=== PATIENT | female | born 1945 | race Caucasian/White ===

== ENCOUNTER 2020-04-29 13:12 | Observation (INO) | payer MEDICARE ==
[~2020-04-29] VITALS: Ht 160 cm; Wt 83.5 kg
--- NOTE | 2020-04-29 13:24 | NUR ---
PATIENT TO ROOM VIA WHEELCHAIR AND PHYSICIAN AT BEDSIDE FOR EVAL
[2020-04-29 13:45] LABS: IMMATURE GRANULOCYTES 1.1 % (0.0-5.0); MEAN CORPUSCULAR HGB 26.6 pG CALC (26.0-32.0); MEAN CORPUSCULAR HGB CONC 31.7 g/dL CAL (32.0-36.0); NEUT# 4.74 thou/uL (1.82-7.42); RED BLOOD COUNT 4.88 mill/uL (4.70-6.10); RED CELL DISTRI WIDTH 14.3 % (11.5-15.5)
[2020-04-29 13:56] LABS: ALBUMIN 4.3 g/dL (3.2-5.0); ALKALINE PHOSPHATASE 105 u/l (38-126); ANION GAP 11 (6-22 (CALC)); BILIRUBIN, TOTAL 0.4 mg/dL (0.0-1.4); BUN 16 mg/dL (8-23); BUN/CREATININE RATIO 25 (12-20 (CALC)); CARBON DIOXIDE 26 mmol/l (22-30); CHLORIDE 103 mmol/l (95-108); CREATININE 0.6 mg/dL (0.7-1.3); GFR > 60 ML/MIN (>=60 (CALC)); GFR FOR AFR.AMER. > 60 ML/MIN (>=60 (CALC)); POTASSIUM 4.2 mmol/l (3.5-5.1); SGOT/AST 20 u/l (19-48); SODIUM 135 mmol/l (137-146); TOTAL PROTEIN 7.3 g/dL (6.3-8.2)
[2020-04-29 13:57] LABS: ACT PARTIAL THROMBO TIME 25.9 SECONDS (20.0-32.5); PROTHROMBIN TIME 10.1 SECONDS (9.0-12.5)
--- NOTE | 2020-04-29 13:58 | NUR ---
MEDICATDE ORDERED, DURGA AT BEDSIDE FOR IV ACCESS
--- NOTE | 2020-04-29 14:41 | NUR ---
BP IMPROVED SINCE MEDICATED WITH NITRO
--- NOTE | 2020-04-29 15:30 | NUR ---
PT RESTING COMPLAINS OF HEADACHE, MD AWARE
[2020-04-29] MEDS ORDERED: ULTRAM50 M1 PO (15:52)
--- NOTE | 2020-04-29 16:35 | NUR ---
PT RESTING MEDICATED EARLIER FOR HEADACHE WITH MILD RELIEF, SPOUSE REMAINS AT BEDSIDE
--- NOTE | 2020-04-29 17:13 | NUR ---
PT AWARE OF DELAYED ADMISSION AND BUSY ER, OFFERS NO NEW COMPLAINTS SPOUSE REMAINS AT BEDSIDE
--- NOTE | 2020-04-29 19:41 | NUR ---
HAND OFF REPORT RECEIVED FROM RAY
--- NOTE | 2020-04-29 20:30 | NUR ---
PATIENT TRANSFERED TO INPATIENT TREATMENT ROOM
--- NOTE | 2020-04-29 20:34 | NUR ---
REPORT CALLED TO ABY ON MED SURG
[2020-04-29 20:35] VITALS: BP 175/87
--- NOTE | 2020-04-29 20:35 | NUR ---
PT ARRIVED TO FLOOR VIA STRETCHER ACCOMPAINED BY ER STAFF. PT ALERT AND ORIENTED X3. PT AMBULATORY WITH STEADY GAIT TO BED. NO APPARENT DISTRESS NOTED. PT DENIES ANY CP OR SOB. REFRACTORY REPAIRER IN PLACE. IV SITE APPEARS HEALTHY. PT ORIENTED TO ROOM AND CALL LIGHT SYSTEM. DISCUSSED POC, PT VERBALIZED UNDERSTANDING. SNACKS PROVIDED. CALL LIGHT WITHIN REACH. WILL CONTINUE TO MONITOR.
[2020-04-29 22:10] VITALS: BP 130/70
[2020-04-30] VITALS: BP 146/73
--- NOTE | 2020-04-30 00:10 | NUR ---
LAB IN ROOM TO COLLECT TROP.
--- NOTE | 2020-04-30 01:34 | NUR ---
PT REQUEST SOMETHING TO HELP WITH SLEEP. PRN SONATA ADMINISTERED AT THIS TIME. PT DENIES ANY OTHER CURRENT WANTS OR NEEDS. CALL LIGHT WITHIN REACH. WILL CONTINUE TO MONITOR.
[2020-04-30 04:00] VITALS: BP 139/52
--- NOTE | 2020-04-30 04:40 | NUR ---
DESKTOP PUBLISHING ASSOCIATE IN ROOM TO OBTAIN LABS.
[2020-04-30 05:29] LABS: HEMOGLOBIN 12.4 g/dl (12.0-16.0); MEAN CELL VOLUME 84.1 fL CALC (80.0-100.0); MEAN CORPUSCULAR HGB 26.7 pG CALC (26.0-32.0); MEAN CORPUSCULAR HGB CONC 31.8 g/dL CAL (32.0-36.0); NEUT# 3.93 thou/uL (2.00-7.15); RED BLOOD COUNT 4.64 mill/uL (4.20-5.60); RED CELL DISTRI WIDTH 14.3 % (11.5-15.5)
[2020-04-30 05:54] LABS: ALBUMIN 3.5 g/dL (3.2-5.0); ALKALINE PHOSPHATASE 84 u/l (38-126); ANION GAP 10 (6-22 (CALC)); BILIRUBIN, TOTAL 0.4 mg/dL (0.0-1.4); BUN 15 mg/dL (8-23); BUN/CREATININE RATIO 27 (12-20 (CALC)); CALCULATED LDLCHOLESTEROL 107 mg/dL (62-129 (CALC)); CARBON DIOXIDE 27 mmol/l (22-30); CHLORIDE 103 mmol/l (95-108); CHOLESTEROL HDL RATIO 4.4 (<4.4 (CALC)); CREATININE 0.6 mg/dL (0.5-1.0); GFR > 60 ML/MIN (>=60 (CALC)); GFR FOR AFR.AMER. > 60 ML/MIN (>=60 (CALC)); HDL CHOLESTEROL 42 mg/dL (>=40); MAGNESIUM 2.1 mg/dL (1.6-2.3); POTASSIUM 4.4 mmol/l (3.5-5.1); SGOT/AST 16 u/l (9-36); SODIUM 136 mmol/l (137-146); TOTAL CHOLESTEROL 187 mg/dl (0-199); TOTAL TRIGLYCERIDES 189 mg/dl (30-149); VLDL CHOLESTROL 38 mg/dl (0-48 (CALC))
[2020-04-30 06:22] LABS: TOTAL PROTEIN 5.8 g/dL (6.3-8.2)
--- NOTE | 2020-04-30 06:58 | NUR ---
REPORT RECEIVED FROM MUNA BADILLO. PT RESTING IN BED, NO S/S OF DISTRESS AT THIS TIME. SAFETY PRECAUTIONS IN PLACE. WILL CONTINUE TO MONITOR.
[2020-04-30 08:19] VITALS: BP 157/80
--- NOTE | 2020-04-30 08:43 | NUR ---
AND OSCAR ONEILL AT THE BEDSIDE.
[2020-04-30 08:55] VITALS: BP 144/61
--- NOTE | 2020-04-30 08:55 | NUR ---
PT RESTING IN BED, ALERT AND ORIENTED. RESPIRATIONS ARE EVEN AND UNLABORED ON RA. LUNGS SOUND CLEAR. PEDAL PULSES ARE STRONG. PT DENIES ANY PAIN OR DISCOMFORT AT THIS TIME. SAFETY PRECAUTIONS IN PLACE. WILL CONTINUE TO MONITOR.
[2020-04-30 10:55] VITALS: BP 126/70
[2020-04-30] MEDS ORDERED: LISINOPRIL10 MG PO (11:48)
[2020-04-30] MEDS ORDERED: ASPIRIN 81 LOW81 MG PO (11:48)
[2020-04-30] MEDS ORDERED: AMLODIPINE BESYL5 MG PO (11:48)
--- NOTE | 2020-04-30 12:01 | NUR ---
PT RESTING IN BED, NO S/S OF DISTRESS AT THIS TIME. SAFETY PRECAUTIONS IN PLACE. WILL CONTINUE TO MONITOR.
--- NOTE | 2020-04-30 14:07 | NUR ---
PT PROVIDED WITH DISCHARGE PACKET, PT DENIES ANY QUESTIONS OR CONCERNS AT THIS TIME. #20 LAC REMOVED, IV CATHETER INTACT.
--- NOTE | 2020-04-30 14:30 | NUR ---
Discharge instructions given. Patient verbalizes understanding of same. Discharged in stable condition via Wheelchair to Home with staff. All belongings sent with pt.
== END 2020-04-30 14:30 | disposition home or self-care (01) ==
LOC: ED 13:12 → EDSEX 13:43 → ED-I 15:11 → ED 15:22 → MS2 15:22
PROVIDERS: Nurse Practitioner; Student in an Organized Health Care Education/Training Program; ADMIT Internal Medicine; ATTEND Internal Medicine
PROC: 3E02340 Introduction of Influenza Vaccine into Muscle, Percutaneous Approach (ICD-10-PCS; principal; 2020-04-30)
PROC: 3E0234Z Introduction of Serum, Toxoid and Vaccine into Muscle, Percutaneous Approach (ICD-10-PCS; 2020-04-30)
DX: R07.9 Chest pain, unspecified (principal); I16.0 Hypertensive urgency; I10 Essential (primary) hypertension; M48.00 Spinal stenosis, site unspecified; I25.2 Old myocardial infarction; Z23 Encounter for immunization; Z20.828 Contact with and (suspected) exposure to other viral communicable diseases
CPT/HCPCS: J1650

== ENCOUNTER 2021-09-10 15:32 | Emergency (ER) | payer MEDICARE ==
[~2021-09-10] VITALS: Ht 160 cm; Wt 86.3 kg
[~2021-09-10 15:32] MED LIST: AMLODIPINE BESYL5 MG PO; ASPIRIN 81 LOW81 MG PO; LISINOPRIL10 MG PO; ULTRAM50 M1 PO
[2021-09-10] MEDS ORDERED: NORVASC5 M1 PO (16:21)
[2021-09-10] MEDS ORDERED: LORTAB 5/3255 MG PO (16:22)
[2021-09-10 18:55] LABS: HEMOGLOBIN 13.8 g/dl (12.0-16.0); IMMATURE GRANULOCYTES 0.8 % (0.0-5.0); MEAN CELL VOLUME 86.7 fL CALC (80.0-100.0); MEAN CORPUSCULAR HGB 27.8 pG CALC (26.0-32.0); MEAN CORPUSCULAR HGB CONC 32.1 g/dL CAL (32.0-36.0); NEUT# 7.58 thou/uL (2.00-7.15); RED BLOOD COUNT 4.96 mill/uL (4.20-5.60); RED CELL DISTRI WIDTH 13.4 % (11.5-15.5)
[2021-09-10 19:10] LABS: ALKALINE PHOSPHATASE 80 u/l (38-126); ANION GAP 14 (6-22 (CALC)); BILIRUBIN, TOTAL 0.5 mg/dL (0.0-1.4); BUN 16 mg/dL (8-23); BUN/CREATININE RATIO 27 (12-20 (CALC)); CARBON DIOXIDE 24 mmol/l (22-30); CHLORIDE 106 mmol/l (95-108); CREATININE 0.6 mg/dL (0.5-1.0); GFR > 60 ML/MIN (>=60 (CALC)); GFR FOR AFR.AMER. > 60 ML/MIN (>=60 (CALC)); POTASSIUM 4.6 mmol/l (3.5-5.1); SGOT/AST 27 u/l (9-36); SODIUM 139 mmol/l (137-146)
[2021-09-10 19:11] LABS: ALBUMIN 4.5 g/dL (3.2-5.0); TOTAL PROTEIN 7.9 g/dL (6.3-8.2)
[2021-09-10 20:11] LABS: ACT PARTIAL THROMBO TIME 25.6 SECONDS (20.0-32.5); PROTHROMBIN TIME 10.1 SECONDS (9.0-12.5)
[2021-09-10 21:05] VITALS: BP 141/118
== END 2021-09-10 21:10 | disposition short-term general hospital (02) ==
LOC: ED 15:32
PROC: 0T9B70Z Drainage of Bladder with Drainage Device, Via Natural or Artificial Opening (ICD-10-PCS; principal; 2021-09-10)
DX: S82.091A Other fracture of right patella, initial encounter for closed fracture (principal); S00.83XA Contusion of other part of head, initial encounter; S40.011A Contusion of right shoulder, initial encounter; M25.461 Effusion, right knee; I25.2 Old myocardial infarction; W11.XXXA Fall on and from ladder, initial encounter; Y92.000 Kitchen of unspecified non-institutional (private) residence as the place of occurrence of the external cause; Z98.84 Bariatric surgery status

== ENCOUNTER 2021-09-19 15:43 | Observation (INO) | payer MEDICARE ==
[2021-09-19] VITALS (18 sets, daily range): BP systolic 99–157; BP diastolic 65–100
[~2021-09-19] VITALS: Ht 160 cm; Wt 82.0 kg
[~2021-09-19 15:43] MED LIST changes: +LORTAB 5/3255 MG PO; +NORVASC5 M1 PO
[2021-09-19 16:30] LABS: HEMOGLOBIN 12.8 g/dl (12.0-16.0); IMMATURE GRANULOCYTES 3.1 % (0.0-5.0); MEAN CELL VOLUME 87.9 fL CALC (80.0-100.0); MEAN CORPUSCULAR HGB 28.1 pG CALC (26.0-32.0); NEUT# 5.06 thou/uL (2.00-7.15); RED BLOOD COUNT 4.55 mill/uL (4.20-5.60); RED CELL DISTRI WIDTH 13.3 % (11.5-15.5)
[2021-09-19 16:41] LABS: ALBUMIN 4.2 g/dL (3.2-5.0); ALKALINE PHOSPHATASE 94 u/l (38-126); ANION GAP 13 (6-22 (CALC)); BILIRUBIN, TOTAL 0.4 mg/dL (0.0-1.4); BUN 15 mg/dL (8-23); BUN/CREATININE RATIO 25 (12-20 (CALC)); CARBON DIOXIDE 26 mmol/l (22-30); CHLORIDE 103 mmol/l (95-108); CREATININE 0.6 mg/dL (0.5-1.0); GFR > 60 ML/MIN (>=60 (CALC)); GFR FOR AFR.AMER. > 60 ML/MIN (>=60 (CALC)); POTASSIUM 3.9 mmol/l (3.5-5.1); SGOT/AST 41 u/l (9-36); SODIUM 137 mmol/l (137-146); TOTAL PROTEIN 7.5 g/dL (6.3-8.2)
[2021-09-19] MEDS ORDERED: OXYCODO-APAP1 TA2 PO (21:37)
[2021-09-20 00:10] VITALS: BP 126/55
[2021-09-20 04:35] VITALS: BP 116/54
[2021-09-20 06:52] LABS: HEMATOCRIT 37.6 % (37.0-47.0); HEMOGLOBIN 11.7 g/dl (12.0-16.0); MEAN CELL VOLUME 89.5 fL CALC (80.0-100.0); MEAN CORPUSCULAR HGB 27.9 pG CALC (26.0-32.0); MEAN CORPUSCULAR HGB CONC 31.1 g/dL CAL (32.0-36.0); RED BLOOD COUNT 4.2 mill/uL (4.20-5.60); RED CELL DISTRI WIDTH 13.4 % (11.5-15.5)
[2021-09-20 07:06] LABS: ANION GAP 11 (6-22 (CALC)); BUN 14 mg/dL (8-23); BUN/CREATININE RATIO 25 (12-20 (CALC)); CALCULATED LDLCHOLESTEROL 115 mg/dL (62-129 (CALC)); CARBON DIOXIDE 25 mmol/l (22-30); CHLORIDE 106 mmol/l (95-108); CHOLESTEROL HDL RATIO 4.8 (<4.4 (CALC)); CREATININE 0.6 mg/dL (0.5-1.0); GFR > 60 ML/MIN (>=60 (CALC)); GFR FOR AFR.AMER. > 60 ML/MIN (>=60 (CALC)); HDL CHOLESTEROL 41 mg/dL (>=40); MAGNESIUM 2.4 mg/dL (1.6-2.3); POTASSIUM 4.3 mmol/l (3.5-5.1); SODIUM 138 mmol/l (137-146); TOTAL CHOLESTEROL 195 mg/dl (0-199); TOTAL TRIGLYCERIDES 197 mg/dl (30-149); VLDL CHOLESTROL 39 mg/dl (0-48 (CALC))
[2021-09-20 08:12] VITALS: BP 127/57
[2021-09-20 10:16] VITALS: BP 151/73
[2021-09-20] MEDS ORDERED: XANAX0.25 MG PO (10:18)
== END 2021-09-20 12:45 | disposition home health service (06) ==
LOC: ED 15:43 → ED-I 17:40 → ED 17:53 → MS2 17:54 → ED-I 18:43 → ED 18:43 → MS2 09-20 12:45
PROVIDERS: Family Medicine; Nurse Practitioner; ADMIT Internal Medicine; ATTEND Internal Medicine
DX: R07.9 Chest pain, unspecified (principal); I10 Essential (primary) hypertension; F41.1 Generalized anxiety disorder; I25.10 Atherosclerotic heart disease of native coronary artery without angina pectoris; M54.50 Low back pain, unspecified; G89.29 Other chronic pain; G25.81 Restless legs syndrome; I25.2 Old myocardial infarction; S82.001D Unspecified fracture of right patella, subsequent encounter for closed fracture with routine healing; X58.XXXD Exposure to other specified factors, subsequent encounter; Z98.890 Other specified postprocedural states; Z98.84 Bariatric surgery status; Z20.822 Contact with and (suspected) exposure to COVID-19
CPT/HCPCS: G0378

== ENCOUNTER 2023-07-21 18:27 | Emergency (ER) | payer MEDICARE ==
[~2023-07-21] VITALS: Ht 160 cm; Wt 84.0 kg
[~2023-07-21 18:27] MED LIST changes: +OXYCODO-APAP1 TA2 PO; +XANAX0.25 MG PO
[2023-07-21 19:46] LABS: BASO% 0.4 % (0-3); EOS% 0.8 % (0-8); HEMOGLOBIN 12.8 g/dl (12.0-16.0); IMMATURE GRANULOCYTES 0.8 % (0.0-5.0); MEAN CELL VOLUME 86.6 fL CALC (80.0-100.0); MEAN CORPUSCULAR HGB 27.7 pG CALC (26.0-32.0); MONO% 5.4 % (2-13); NEUT# 6.53 thou/uL (2.00-7.15); NEUT% 83.6 % (42-76); RED BLOOD COUNT 4.62 mill/uL (4.20-5.60); RED CELL DISTRI WIDTH 13.5 % (11.5-15.5)
[2023-07-21 20:00] LABS: ALKALINE PHOSPHATASE 83 u/l (38-126); ANION GAP 14 (6-22 (CALC)); BILIRUBIN, TOTAL 0.7 mg/dL (0.02-1.3); BUN 11 mg/dL (8-23); BUN/CREATININE RATIO 22 (12-20 (CALC)); CARBON DIOXIDE 20 mmol/l (22-30); CHLORIDE 108 mmol/l (95-108); CREATININE 0.5 mg/dL (0.5-1.0); GFR FOR AFR.AMER. > 60 ML/MIN (>=60 (CALC)); GFR OTHER RACES > 60 ML/MIN (>=60 (CALC)); LIPASE 20 u/l (23-300); POTASSIUM 3.5 mmol/l (3.5-5.1); SGOT/AST 24 u/l (9-36); SODIUM 138 mmol/l (137-146); TOTAL PROTEIN 6.4 g/dL (6.3-8.2)
[2023-07-21] MEDS ORDERED: PROMETHAZINE HY25 M1 PO (21:23)
[2023-07-21] MEDS ORDERED: IMODIUM2 MG PO (21:23)
[2023-07-21 22:05] VITALS: BP 136/75
== END 2023-07-21 22:06 | disposition home or self-care (01) ==
LOC: ED 18:27
PROVIDERS: Nurse Practitioner Family
DX: A08.4 Viral intestinal infection, unspecified (principal); I25.2 Old myocardial infarction; Z98.84 Bariatric surgery status; Z20.822 Contact with and (suspected) exposure to COVID-19

== ENCOUNTER 2023-08-30 17:13 | Emergency (ER) | payer MEDICARE ==
[2023-08-30] VITALS (7 sets, daily range): BP systolic 136–153; BP diastolic 58–94
[~2023-08-30] VITALS: Ht 160 cm; Wt 86.0 kg
[~2023-08-30 17:13] MED LIST changes: +IMODIUM2 MG PO; +PROMETHAZINE HY25 M1 PO
[2023-08-30] MEDS ORDERED: LYRICA50 MG PO (17:38)
[2023-08-30 18:25] LABS: BASO% 0.8 % (0-3); HEMATOCRIT 39.4 % (37.0-47.0); HEMOGLOBIN 12.5 g/dl (12.0-16.0); IMMATURE GRANULOCYTES 1.9 % (0.0-5.0); MEAN CELL VOLUME 88.5 fL CALC (80.0-100.0); MEAN CORPUSCULAR HGB 28.1 pG CALC (26.0-32.0); MEAN CORPUSCULAR HGB CONC 31.7 g/dL CAL (32.0-36.0); MONO% 7.1 % (2-13); NEUT# 3.64 thou/uL (2.00-7.15); NEUT% 56.2 % (42-76); RED BLOOD COUNT 4.45 mill/uL (4.20-5.60); RED CELL DISTRI WIDTH 13.6 % (11.5-15.5)
[2023-08-30 18:41] LABS: PROTHROMBIN TIME 9.3 SECONDS (9.0-12.5)
[2023-08-30 18:42] LABS: ALBUMIN 4.2 g/dL (3.2-5.0); ALKALINE PHOSPHATASE 96 u/l (38-126); BUN 16 mg/dL (8-23); BUN/CREATININE RATIO 27 (12-20 (CALC)); CHLORIDE 107 mmol/l (95-108); CREATININE 0.6 mg/dL (0.5-1.0); GFR FOR AFR.AMER. > 60 ML/MIN (>=60 (CALC)); GFR OTHER RACES > 60 ML/MIN (>=60 (CALC)); POTASSIUM 3.9 mmol/l (3.5-5.1); SGOT/AST 24 u/l (9-36); SODIUM 140 mmol/l (137-146); TOTAL PROTEIN 6.7 g/dL (6.3-8.2)
[2023-08-30 18:46] LABS: ANION GAP 10 (6-22 (CALC)); BILIRUBIN, TOTAL 0.2 mg/dL (0.02-1.3); CARBON DIOXIDE 27 mmol/l (22-30)
[2023-08-30 18:51] LABS: D-DIMER 0.5 mg/L (0.19-0.60)
[2023-08-30] MEDS ORDERED: DOXYCYCLINE HYCLATE 100 MG/CAP PO ONE (19:35)
[2023-08-30] MEDS ORDERED: ENOXAPARIN SODIUM 100 MG/ML SYR SC ONE (19:35)
[2023-08-30] MEDS ORDERED: VIBRAMYCIN100 M2 PO (19:52)
== END 2023-08-30 20:12 | disposition home or self-care (01) ==
LOC: ED 17:13
PROVIDERS: Nurse Practitioner
DX: L03.116 Cellulitis of left lower limb (principal); I10 Essential (primary) hypertension; I25.2 Old myocardial infarction
CPT/HCPCS: J1650

== ENCOUNTER 2024-06-20 17:55 | Emergency (ER) | payer MEDICARE ==
[2024-06-20] VITALS (12 sets, daily range): BP systolic 141–175; BP diastolic 59–92
[~2024-06-20] VITALS: Ht 160 cm; Wt 86.0 kg
[~2024-06-20 17:55] MED LIST changes: +LYRICA50 MG PO; +VIBRAMYCIN100 M2 PO
[2024-06-20] MEDS ORDERED: DiphenhydrAMINE HCL 50 MG/ML SDV IV ONE (18:15)
[2024-06-20] MEDS ORDERED: KETOROLAC TROMETHAMINE 30 MG/ML SDV IV ONE (18:15)
[2024-06-20] MEDS ORDERED: PROCHLORPERAZINE EDISYLATE 10 MG/2 ML SDV IV ONE (18:15)
[2024-06-20] MEDS ORDERED: CAFFEINE CITRATE 60 MG/3 ML IV ONE (20:00)
[2024-06-20] MEDS ORDERED: SODIUM CHLORIDE 0.9% 1,000 ML IV ONE (20:00)
[2024-06-20 20:02] LABS: BASO% 0.1 % (0-3); HEMATOCRIT 39.6 % (37.0-47.0); HEMOGLOBIN 12.8 g/dl (12.0-16.0); IMMATURE GRANULOCYTES 0.9 % (0.0-5.0); LYMPH% 9.5 % (15-41); MEAN CELL VOLUME 89.4 fL CALC (80.0-100.0); MEAN CORPUSCULAR HGB 28.9 pG CALC (26.0-32.0); MEAN CORPUSCULAR HGB CONC 32.3 g/dL CAL (32.0-36.0); MONO% 5.1 % (2-13); NEUT# 10.97 thou/uL (2.00-7.15); NEUT% 84.4 % (42-76); RED BLOOD COUNT 4.43 mill/uL (4.20-5.60); RED CELL DISTRI WIDTH 13.6 % (11.5-15.5)
[2024-06-20 20:07] LABS: ALBUMIN 4.2 g/dL (3.2-5.0); CREATININE 0.7 mg/dL (0.5-1.0); POTASSIUM 4.4 mmol/l (3.5-5.1); TOTAL PROTEIN 6.7 g/dL (6.3-8.2)
[2024-06-20 20:08] LABS: BILIRUBIN, TOTAL 0.7 mg/dL (0.02-1.3)
== END 2024-06-20 21:11 | disposition left against medical advice (07) ==
LOC: ED 17:55
PROVIDERS: Clinical Nurse Specialist Emergency
DX: R51.9 Headache, unspecified (principal); I10 Essential (primary) hypertension; I25.2 Old myocardial infarction; Z53.29 Procedure and treatment not carried out because of patient's decision for other reasons
CPT/HCPCS: J0706; J1200

== ENCOUNTER 2024-07-10 15:39 | Observation (INO) | payer MEDICARE ==
--- NOTE | 2024-07-10 16:00 | NUR ---
PT ARRIVED TO THE UNIT VIA WC ACCOMPANIED BY SPOUSE, PT AMBULATED FROM THE WC TO THE BEDSIDE SCALE AND TO THE BED WITH A STEADY GAIT, PT IS A&O X3, PUPILS, PERRL, RESP. EVEN AND UNLABORED, LUNG SOUNDS ARE CLEAR, NORMAL S1 S2 HEART SOUNDS, ABD DISTENDED AND SOFT WITH ACTIVE BOWEL SOUNDS, PT COMPLAINS OF TENDERNESS IN HER ABD, STRONG RADIAL PULSES, WEAK PEDAL PULSES, 22G LAC IV SL, PT ORIENTED TO ROOM AND CALL RIVERA SYSTEM, SAFETY MEASURES IN PLACE, CALL RIVERA WITHIN REACH
[2024-07-10 16:06] VITALS: BP 111/62
[2024-07-10] MEDS ORDERED: MAGNESIUM HYDROXIDE 30 ML UDC PO PRN (16:45)
[2024-07-10] MEDS ORDERED: SODIUM CHLORIDE 0.9% 1,000 ML IV PRN (16:45)
[2024-07-10] MEDS ORDERED: ACETAMINOPHEN 325 MG/TAB PO PRN (16:45)
[2024-07-10] MEDS ORDERED: ALUM & MAG HYDROX-SIMETHICONE 30 ML PO PRN (17:15)
[2024-07-10] MEDS ORDERED: Polyethylene Glycol 3350 17 GM/PKT PO PRN (17:15)
[2024-07-10] MEDS ORDERED: LORazepam 0.5 MG/TAB PO PRN (17:15)
[2024-07-10 17:28] VITALS: BP 111/62
[2024-07-10 17:31] LABS: URINE BLOOD DIPSTICK Negative (NEGATIVE); URINE GLUCOSE - DIPSTICK Negative (NEGATIVE); URINE KETONE Trace mg/dL (NEGATIVE); URINE LEUK ESTERASE Trace (NEGATIVE); URINE NITRITE - DIPSTICK Negative (Negative); URINE PH 5.5 (4.5-8.0); URINE PROTEIN - DIPSTICK Negative (NEG-TRACE); URINE SPECIFIC GRAVITY 1.025
[2024-07-10 17:32] LABS: BASO% 0.4 % (0-3); EOS% 3.4 % (0-8); IMMATURE GRANULOCYTES 1.7 % (0.0-5.0); LYMPH% 20.6 % (15-41); MEAN CELL VOLUME 90.2 fL CALC (80.0-100.0); MEAN CORPUSCULAR HGB 28.4 pG CALC (26.0-32.0); MEAN CORPUSCULAR HGB CONC 31.5 g/dL CAL (32.0-36.0); MONO% 8.7 % (2-13); NEUT# 5.9 thou/uL (2.00-7.15); NEUT% 65.2 % (42-76); RED BLOOD COUNT 3.06 mill/uL (4.20-5.60); RED CELL DISTRI WIDTH 14.7 % (11.5-15.5)
[2024-07-10 17:33] LABS: HEMATOCRIT 27.6 % (37.0-47.0); HEMOGLOBIN 8.7 g/dl (12.0-16.0)
[2024-07-10 17:34] LABS: URINE COLOR Yellow
[2024-07-10 17:38] LABS: URINE BACTERIA FEW hpf; URINE EPITHELIAL CELLS FEW EPI/hpf (0-FEW); URINE MUCUS FEW hpf (NONE-FEW); URINE SQUAMOUS EPITHELIAL CELL FEW EPI/hpf (0-FEW)
[2024-07-10 17:47] LABS: ALBUMIN 3.9 g/dL (3.2-5.0); BILIRUBIN, TOTAL 0.5 mg/dL (0.02-1.3); CREATININE 0.6 mg/dL (0.5-1.0); POTASSIUM 3.6 mmol/l (3.5-5.1); TOTAL PROTEIN 6.6 g/dL (6.3-8.2)
[2024-07-10] MEDS ORDERED: Peg 3350-POTASSIUM CHLORIDE-So 4,000 ML BTL PO SCH (18:00)
[2024-07-10 18:55] VITALS: BP 114/61
[2024-07-10 19:26] VITALS: BP 114/61
[2024-07-10] MEDS ORDERED: PREGABALIN 50 MG/CAP PO SCH (21:00)
--- NOTE | 2024-07-10 21:59 | NUR ---
Pt is alert and orient and able to make needs known. Assessment complete. Pt states she might not be able to drink entire jug of bowel prep. Pt to be NPO as of midnight. No distress noted. Pt is breathing even and non-labored on room air. Bed in low postion with call light within reach.
[2024-07-11] VITALS (13 sets, daily range): BP systolic 106–115; BP diastolic 48–61
--- NOTE | 2024-07-11 00:04 | NUR ---
Pt is resting in bed comfortably at this time. Pt was able to finish 1/3 of bowel prep. She stated that she did the best that she could. Pt is NPO. No complaint of pain or discomfort at this time.
--- NOTE | 2024-07-11 04:11 | NUR ---
Pt awake and alert. PRN tylenol administered for heahace. Stool sample obtained for OB. Bed in low position with call light within reach.
[2024-07-11 05:35] LABS: BASO% 0.5 % (0-3); EOS% 5.2 % (0-8); HEMOGLOBIN 7.6 g/dl (12.0-16.0); IMMATURE GRANULOCYTES 1.5 % (0.0-5.0); LYMPH% 25.7 % (15-41); MEAN CELL VOLUME 92.6 fL CALC (80.0-100.0); MEAN CORPUSCULAR HGB 28.1 pG CALC (26.0-32.0); MEAN CORPUSCULAR HGB CONC 30.4 g/dL CAL (32.0-36.0); MONO% 10.2 % (2-13); NEUT# 4.52 thou/uL (2.00-7.15); NEUT% 56.9 % (42-76); RED BLOOD COUNT 2.7 mill/uL (4.20-5.60); RED CELL DISTRI WIDTH 14.6 % (11.5-15.5)
[2024-07-11 05:47] LABS: BILIRUBIN, TOTAL 0.4 mg/dL (0.02-1.3); CREATININE 0.6 mg/dL (0.5-1.0); MAGNESIUM 2.5 mg/dL (1.6-2.3)
[2024-07-11 06:02] LABS: ALBUMIN 3.1 g/dL (3.2-5.0); TOTAL PROTEIN 5.2 g/dL (6.3-8.2)
[2024-07-11] MEDS ORDERED: SODIUM CHLORIDE 0.9% 500 ML IV PRN (07:00)
[2024-07-11] MEDS ORDERED: amLODIPine BESYLATE 5 MG/TAB PO SCH (09:00)
--- NOTE | 2024-07-11 11:06 | NUR ---
Patient went to ENDO/OR for colonscopy procedure. Staff and MD aware that patient did not consume the entire bottle of Go lytlely. Blood transfusion pending return to unit
[2024-07-11] MEDS ORDERED: LIDOCAINE HCL 2% 2ML SDV IV ONE (11:33)
[2024-07-11] MEDS ORDERED: PROPOFOL 200 MG/20 ML VIAL IV ONE (11:33)
--- NOTE | 2024-07-11 20:00 | NUR ---
RECEIVED REPORT FROM DAYSMNFT NURSE. PT NOTED LAYING IN BED SEMI FOWELRS, RM AIR. PT IS A/OX4, DENIES ANY N/V BUT DOES C/O HEADACHE. NURSING ASSESSMENT COMPLETED, PT DENIES ANY ABD TENDERNESS OR PAIN AT THIS TIME. STATES SHE HAS BEEN ABLE TO HAVE BOWEL MOVEMENT POST PROCEDURE. NURSING ASSESSMENT COMPLETED, IV SITE APPEARS HEALTHY AND INTACT WITH PROTONIX DRIP INFUSING PER EMAR. EDUCATED PT ON PLAN OF CARE AND MED SCHEDULE. WILL FOLLOW UP WITH PAIN MEDICATION PER EMAR. CALL LIGHT WITHIN REACH AND SAFETY PRECAUTIONS IN PLACE.
--- NOTE | 2024-07-12 | NUR ---
PT LAYING IN BED ON RT SIDE, SLEEPING. NO S/S OF DITRESS. PROTONIX DRIP INFUSING PER EMAR. CALL LIGHT WITHIN REACH AND SAFETY PRECAUTIONS IN PLACE.
[2024-07-12 03:47] VITALS: BP 125/57
--- NOTE | 2024-07-12 04:48 | NUR ---
PT C/O HEADACHE, ADMINSITERED MEDICATION PER EMAR FOR PAIN. PT STATES SHE DEALS WITH CHRONIC MIGRAINES AT HOME. OFFERED COLD WASH CLOTH FOR OVER EYES BUT PT REFUSED AT THIS TIME. PT LAYING IN BED SEMI FOWLERS. RM AIR. IV SITE APPEARS HEALTHY AND INTACT WITH MEDICATION INFUSING PER EMAR. VSS. NO S/S OF DISTRESS. CALL LIGHT WITHIN REACH AND SAFETY PRECAUTIONS IN PLACE.
[2024-07-12 05:09] LABS: BASO% 0.8 % (0-3); EOS% 5.8 % (0-8); HEMATOCRIT 29.4 % (37.0-47.0); HEMOGLOBIN 9.3 g/dl (12.0-16.0); IMMATURE GRANULOCYTES 1.2 % (0.0-5.0); LYMPH% 22.9 % (15-41); MEAN CELL VOLUME 91.6 fL CALC (80.0-100.0); MEAN CORPUSCULAR HGB CONC 31.6 g/dL CAL (32.0-36.0); MONO% 8.8 % (2-13); NEUT# 4.62 thou/uL (2.00-7.15); NEUT% 60.5 % (42-76); RED BLOOD COUNT 3.21 mill/uL (4.20-5.60); RED CELL DISTRI WIDTH 14.9 % (11.5-15.5)
[2024-07-12 05:23] LABS: ALBUMIN 3.2 g/dL (3.2-5.0); CREATININE 0.6 mg/dL (0.5-1.0); MAGNESIUM 2.5 mg/dL (1.6-2.3); POTASSIUM 4.1 mmol/l (3.5-5.1); TOTAL PROTEIN 5.6 g/dL (6.3-8.2)
[2024-07-12 05:28] LABS: BILIRUBIN, TOTAL 0.6 mg/dL (0.02-1.3)
[2024-07-12 07:06] VITALS: BP 122/58
[2024-07-12 07:12] VITALS: BP 175/83
--- NOTE | 2024-07-12 07:30 | NUR ---
PATIENT PLEASENT , NO C/O OF PAIN . ALSO ABLE TO MAKE NEEDS KNOWN. iV SITE IN TACT.
[2024-07-12] MEDS ORDERED: AMOXICILLIN500 MG PO ×4 (10:42→15:22)
[2024-07-12] MEDS ORDERED: PROTONIX40 M2 PO ×2 (10:44→11:03)
[2024-07-12] MEDS ORDERED: CLARITHROMYCIN500 MG PO ×2 (10:44→11:03)
--- NOTE | 2024-07-12 12:01 | NUR ---
PATIENT WAS DISCHARGED TO HOME. STABLE , TRANSPORTED W/WHEEL CHAIR DOWNSTAIRS. IV WAS REMOVED PREDISCHARGE.
--- NOTE | 2024-07-17 13:48 | NUR ---
Discharge follow up call completed 07/17/24. Patient states she is improving since discharge. Patient is taking medication as directed. Patient will make a follow up appointment with her PCP soon. No needs or concerns verbalized at this time.
== END 2024-07-12 12:15 | disposition home or self-care (01) ==
LOC: MS2 15:39
PROVIDERS: Nurse Practitioner Family; ADMIT Internal Medicine; ATTEND Internal Medicine
PROC: 30233N1 Transfusion of Nonautologous Red Blood Cells into Peripheral Vein, Percutaneous Approach (ICD-10-PCS; principal; 2024-07-11)
PROC: 0DJ08ZZ Inspection of Upper Intestinal Tract, Via Natural or Artificial Opening Endoscopic (ICD-10-PCS; 2024-07-11)
DX: K28.4 Chronic or unspecified gastrojejunal ulcer with hemorrhage (principal); D50.0 Iron deficiency anemia secondary to blood loss (chronic); I10 Essential (primary) hypertension; I25.10 Atherosclerotic heart disease of native coronary artery without angina pectoris; I25.2 Old myocardial infarction; M19.90 Unspecified osteoarthritis, unspecified site; M54.9 Dorsalgia, unspecified; G89.29 Other chronic pain; Z98.84 Bariatric surgery status; Z95.1 Presence of aortocoronary bypass graft
CPT/HCPCS: J2470; P9016

== ENCOUNTER 2024-10-09 08:34 | Day surgery (SDC) | payer MEDICARE ==
[~2024-10-09] VITALS: Ht 160 cm; Wt 86.2 kg
[~2024-10-09 08:34] MED LIST changes: +AMOXICILLIN500 MG PO; +CLARITHROMYCIN500 MG PO; +CRESTOR20 MG PO; +CYANOCOBAL1000 MCG/M SC; +PROTONIX40 M2 PO
[2024-10-09] MEDS ORDERED: LACTATED RINGER'S 1,000 ML IV ONE (08:42)
[2024-10-09] MEDS ORDERED: FAMOTIDINE 10MG/ML 2ML SDV IV ONE (08:42)
[2024-10-09] MEDS ORDERED: PREVACID30 M1 PO (10:43)
[2024-10-09 12:33] VITALS: BP 155/81
== END 2024-10-09 11:20 | disposition home or self-care (01) ==
LOC: ENDO 08:34 → ORM 08:35 → ENDO 08:35 → ORM 08:45 → ENDO 11:05
PROVIDERS: ATTEND Surgery
PROC: 0DBA8ZX Excision of Jejunum, Via Natural or Artificial Opening Endoscopic, Diagnostic (ICD-10-PCS; principal; 2024-10-09)
DX: K28.3 Acute gastrojejunal ulcer without hemorrhage or perforation (principal); K22.70 Barrett's esophagus without dysplasia; K44.9 Diaphragmatic hernia without obstruction or gangrene; Z98.84 Bariatric surgery status